=== PATIENT | female | born 1960 | race Caucasian/White ===

== ENCOUNTER → 2023-09-14 | Outpatient (CLI) | payer MEDICARE ==
[2023-09-14 15:35] LABS: THYROID STIMULATING HORMONE 7.07 uIU/mL (0.36-3.74)
== END | disposition home or self-care (01) ==
LOC: LAB 13:35
PROVIDERS: ATTEND Internal Medicine Cardiovascular Disease
DX: R00.2 Palpitations (principal)
CPT/HCPCS: 36415; 84439; 84443

== ENCOUNTER → 2023-10-23 | Outpatient (CLI) | payer MEDICARE | END | disposition home or self-care (01) | LOC: SHCH 12:55 | PROVIDERS: ATTEND Internal Medicine Cardiovascular Disease | DX: I34.0 Nonrheumatic mitral (valve) insufficiency (principal); R00.2 Palpitations; I31.39 Other pericardial effusion (noninflammatory) | CPT/HCPCS: 93306 ==